=== PATIENT | female | born 1960 | race Caucasian/White ===

== ENCOUNTER 2020-06-07 13:03 | Outpatient (CLI) | payer MEDICAID ==
[~2020-06-07] VITALS: Ht 172.7 cm; Wt 61.2 kg
[2020-06-07 13:24] VITALS: BP 128/91
--- NOTE | 2020-06-10 22:44 | Consultation ---
DATE OF CONSULTATION: 06/07/2020 CONSULTING PHYSICIAN: Parish Flynn MD REASON FOR CONSULTATION: Referral for colonoscopy. PAST MEDICAL HISTORY: None. PAST SURGICAL HISTORY: None. MEDICATIONS: None. SOCIAL HISTORY: Patient drinks alcohol occasionally. Denies any tobacco or drug abuse. ALLERGIES: No known drug allergies. REVIEW OF SYSTEMS: Negative. PHYSICAL EXAMINATION: VITAL SIGNS: Temperature 97.4, blood pressure 120/90, pulse 87, respirations 20. HEENT: Normocephalic, atraumatic. Sclerae are anicteric. NECK: Supple. No evidence of obvious lymphadenopathy. CARDIOVASCULAR: Regular rate and rhythm. Plus S1-S2. LUNGS: Clear to auscultation bilaterally. ABDOMEN: Positive bowel sounds. Soft and nontender. No rebound. No guarding. No peritoneal sign. EXTREMITIES: No cyanosis. No clubbing. No edema. ASSESSMENT AND PLAN: This 59-year-old female needs a screening colonoscopy. Patient was given instruction for colonoscopy. Risks and benefits of procedure were explained to her. We will schedule her as soon as authorization is obtained. Parish Flynn M.D. DR: [id number] JOB#: [id number] CC:
== END 2020-06-07 15:03 | disposition home or self-care (01) ==
LOC: PAN 13:03
DX: Z00.00 Encounter for general adult medical examination without abnormal findings (principal)
CPT/HCPCS: 99203